=== PATIENT | male | born 1985 | race African-American/Black ===

== ENCOUNTER 2018-09-13 19:06 | Emergency (ER) | payer MEDICAID ==
[~2018-09-13] VITALS: Ht 172.7 cm; Wt 82.0 kg
[2018-09-14 00:47] VITALS: BP 132/85
== END 2018-09-14 00:47 | disposition home or self-care (01) ==
LOC: EDBD 19:06 → ER 19:06
DX: M25.531 Pain in right wrist (principal); M25.511 Pain in right shoulder; V43.52XA Car driver injured in collision with other type car in traffic accident, initial encounter; Y93.89 Activity, other specified; Y92.488 Other paved roadways as the place of occurrence of the external cause
CPT/HCPCS: 73110; 99283